=== PATIENT | male | born 1935 | race Caucasian/White ===

== ENCOUNTER 2021-03-15 07:37 | Outpatient (CLI) | payer MEDICARE, OTHER ==
[2021-03-15] MEDS ORDERED: Iopamidol 370 76% 100 ML VIAL ONE (13:28)
== END 2021-03-15 07:38 | disposition home or self-care (01) ==
LOC: CT 07:37
PROVIDERS: ATTEND Urology
DX: C61 Malignant neoplasm of prostate (principal); J98.4 Other disorders of lung
CPT/HCPCS: 74178; Q9967

== ENCOUNTER → 2021-03-15 | Outpatient (CLI) | payer MEDICARE, OTHER | LOC: NM 08:00 | PROVIDERS: ATTEND Urology | DX: C61 Malignant neoplasm of prostate (principal); R94.8 Abnormal results of function studies of other organs and systems | CPT/HCPCS: 78306; 82565; A9503 ==

== ENCOUNTER 2021-03-18 10:48 | Outpatient (CLI) | payer MEDICARE, OTHER | END 2021-03-18 10:49 | disposition home or self-care (01) | LOC: BICRAD 10:48 | PROVIDERS: ATTEND Urology | DX: M54.6 Pain in thoracic spine (principal); C61 Malignant neoplasm of prostate; M47.814 Spondylosis without myelopathy or radiculopathy, thoracic region | CPT/HCPCS: 72072 ==

== ENCOUNTER 2022-09-27 08:18 | Outpatient (CLI) | payer MEDICARE ==
[2022-09-27] MEDS ORDERED: Magnevist 469MG/ML 20 ML VIAL ONE (10:12)
== END 2022-09-27 08:19 | disposition home or self-care (01) ==
LOC: MRI 08:18 → TBSIIMAG 08:19
PROVIDERS: ATTEND Radiology Radiation Oncology
DX: C79.51 Secondary malignant neoplasm of bone (principal)
CPT/HCPCS: 72157; 77306; 77332; 82565; A9579